=== PATIENT | male | born 1970 | race Hispanic/Latino ===

== ENCOUNTER 2023-01-21 00:30 | Emergency (ER) | payer SELFPAY ==
[~2023-01-21] VITALS: Ht 167.6 cm; Wt 70.3 kg
[2023-01-21 00:56] VITALS: O2SAT 100
== END 2023-01-21 02:20 | disposition home or self-care (01) ==
LOC: ER 00:54
DX: R51.9 Headache, unspecified (principal); K08.89 Other specified disorders of teeth and supporting structures; G89.29 Other chronic pain
CPT/HCPCS: 70450; 70486; 99283